=== PATIENT | female | born 1985 | race Caucasian/White ===

== ENCOUNTER 2020-05-01 09:30 | Day surgery (SDC) | payer BC ==
[2020-05-01] MEDS ORDERED: Fentanyl 100 MCG/2 ML VIAL ONE ×4 (09:56→13:45)
[2020-05-01] MEDS ORDERED: Ondansetron PF 4 MG/2 ML Vial ONE ×2 (09:56→14:08)
--- NOTE | 2020-05-01 11:00 | HP ---
HISTORY OF PRESENT ILLNESS: Ms. Perez is a 35-year-old woman, who presented to emergency department in [place] complaining of insidious onset periumbilical abdominal pain, which started three days ago, rated at 6/10. Pain intensified yesterday afternoon at work, at that time rated at 8/10, associated with some chills. Workup there revealed an inflamed appendix, for which the patient was transferred to [facility] in [place], [place]. She denies any fever at the moment. She denies any change in her bowel habits. PAST MEDICAL HISTORY: Pertinent for chronic depression. PAST SURGICAL HISTORY: Pertinent for left breast lumpectomy for benign lesion, right ankle surgery, and excision of benign cyst in her groin. SOCIAL HISTORY: She is employed as a speech pathologist. She admits to occasional intake of ethanol in moderate amounts. She denies any cigarette smoking or illicit drug abuse. FAMILY HISTORY: Notable for breast carcinoma in her mother, who eventually from suicide. She has paternal grandparents with essential hypertension. There is no family history of diabetes mellitus, heart disease, or any other gastrointestinal disorder. PREHOSPITALIZATION MEDICATIONS: Include Lexapro 10 mg p.o. daily. ALLERGIES: THE PATIENT DENIES ANY KNOWN DRUG ALLERGIES. REVIEW OF SYSTEMS: Ten-point review of systems essentially unremarkable except as stated in past medical history and chief complaint. PHYSICAL EXAMINATION: GENERAL: This reveals a 35-year-old normally developed woman, who is otherwise coherent and interactive and appears stated age. The patient is alert and oriented x3, appears to be in no significant acute distress at the time of my evaluation. She now rates her pain at 5/10. VITAL SIGNS: Include blood pressure 124/72, pulse 90, respiratory rate is 18, temperature 98.1 degrees Fahrenheit, and oxygen saturation is 100% on room air. HEENT: Reveals normocephalic and atraumatic. Pupils are equal, round, and reactive to light and accommodation. HEART: Reveals regular rate and rhythm. No murmurs or gallops auscultated. LUNGS: Clear to auscultation bilaterally. Her breathing is regular and nonlabored. ABDOMEN: Soft with right lower quadrant tenderness at McBurney's. She has a positive Rovsing sign. Liver and spleen otherwise nonpalpable below costal margin. NEUROLOGIC: Reveals no focal deficits present. PERTINENT LABORATORY FINDINGS: Today include a CBC with 7300 white blood cell, hemoglobin and hematocrit 12.8 and 40.7 respectively. Platelet count is 151,000. Metabolic profile; sodium 138, potassium 3.8, chloride is 104, bicarb is 23, BUN 8, creatinine is 0.77, glucose is 112, lactic acid is 0.7. I have personally reviewed the CT scan of the abdomen and pelvis, which is remarkable for dilated appendix with periappendiceal fat stranding. No pneumoperitoneum or significant free fluid to suggest perforation. IMPRESSION: Acute appendicitis. RECOMMENDATIONS: Laparoscopic appendectomy. Above findings and plan have been discussed with the patient, who indicates understanding of information given. I have advised her of the risks and benefits of the proposed surgery to include, but not limited to bleeding, infection, injury to bowel or surrounding structures. I also informed the patient that given her pain is a little better today compared to yesterday, it is possible that she may have ruptured her appendix considering the pain has been there now for three days. If the appendix is ruptured, this may require additional hospitalization for IV antibiotics. Otherwise, anticipate discharging the patient today postoperatively. The patient indicates understanding of information given. I have answered all her questions. The patient is going to consent for this admission and surgical intervention. Job ID: [id number]
[2020-05-01] MEDS ORDERED: Lidocaine 1% w/Epinephrine 1:100K 20 ML VIAL ONE (12:00)
[2020-05-01] MEDS ORDERED: Bupivacaine 0.25% HCL 30 ML VIAL ONE (12:00)
[2020-05-01] MEDS ORDERED: HYDROmorphone 2 MG/ML VIAL SLOW IVP PRN (12:35)
[2020-05-01] MEDS ORDERED: Promethazine HCl 25 MG/ML VIAL SLOW IVP PRN (12:35)
[2020-05-01] MEDS ORDERED: Promethazine HCl 25 MG/ML VIAL IM PRN (12:35)
[2020-05-01] MEDS ORDERED: Meperidine HCl/PF 25 MG/ML VIAL SLOW IVP PRN (12:35)
[2020-05-01] MEDS ORDERED: Ondansetron HCl/PF 4 MG/2 ML Vial IVP PRN (12:35)
[2020-05-01] MEDS ORDERED: Meperidine HCl/PF 25 MG/ML VIAL ONE (13:26)
[2020-05-01] MEDS ORDERED: Promethazine HCl 25 MG/ML VIAL ONE (13:48)
[2020-05-01] MEDS ORDERED: PROPOFOL 200 MG/20 ML VIAL ONE (14:08)
[2020-05-01] MEDS ORDERED: Ketorolac Tromethamine 30 MG/ML VIAL ONE (14:08)
[2020-05-01] MEDS ORDERED: Succinylcholine Chloride 20 MG/ML 10 ml SYRINGE FS ONE (14:08)
[2020-05-01] MEDS ORDERED: Glycopyrrolate 0.2 MG/ML 5 ML SYRINGE ONE (14:08)
[2020-05-01] MEDS ORDERED: Lidocaine 1% PF 5 ML VIAL ONE (14:08)
[2020-05-01] MEDS ORDERED: Rocuronium Bromide 10 MG/ML (10ML VIAL) ONE (14:08)
[2020-05-01] MEDS ORDERED: Dexamethasone 20 MG/5 ML VIAL ONE (14:08)
--- NOTE | 2020-05-01 15:37 | OP ---
DATE OF PROCEDURE: 05/01/2020 PREOPERATIVE DIAGNOSIS: Acute appendicitis. POSTOPERATIVE DIAGNOSIS: Acute appendicitis. PROCEDURE PERFORMED: Laparoscopic appendectomy. ANESTHESIA: General endotracheal. ESTIMATED BLOOD LOSS: 5 mL. FLUIDS GIVEN: 1100 mL of crystalloids. COUNTS: Sponge and instrument counts were verified as correct x2. COMPLICATIONS: None apparent at the time of operation. INDICATIONS FOR OPERATION: A 35-year-old woman, presented with 3-day history of periumbilical abdominal pain right lower quadrant. Clinical and radiographic examination were consistent with acute appendicitis, for which the patient was brought to the operating room for appendectomy. Findings are consistent with dilated retrocecal appendix. No evidence of perforation. DESCRIPTION OF PROCEDURE: Informed consent was obtained from the patient, who was brought to the operating room and placed in supine position. Following general anesthesia, abdomen was sterilely prepped and draped in usual fashion. The skin below the umbilicus was infiltrated with 0.25% Marcaine with epinephrine. A small curvilinear infraumbilical incision was made using 11 scalpel. Umbilical stalk was grasped with Solo and elevated. Veress needle was inserted through the incision and placed in the peritoneal cavity through which the abdomen was insufflated with 3 L of CO2 gas. Intraabdominal pressure noted at 1 mmHg. Following abdominal insufflation, Veress needle was removed and a 5-mm trocar introduced using a Visiport under laparoscopy. Laparoscopy confirmed proper placement of the port, no injuries to underlying structures. Additional laparoscopy reveals the right lower quadrant partially obscured by omental adhesions. Under direct laparoscopy, two 5-mm suprapubic and left lower quadrant ports were placed after the overlying skin were infiltrated with 0.25% Marcaine with epinephrine and appropriate incision was made. The patient was placed in a Trendelenburg position, rotated to her left. I introduced a Prestige grasper through the left lower quadrant port site, using this to bluntly take down omental adhesions to expose a retrocecal appendix. Endo Elias forceps was introduced through the suprapubic port site grasping the appendix, which was elevated. Using a LigaSure device, the mesoappendix was sterilely divided down to the base with good hemostasis. Appendix itself was then divided at the appendicocecal junction between Endoloop. The specimen was delivered of the abdominal cavity using an Endo Catch. The distal ileum was run from the ileocecal junction down to proximal 2 feet, finding no Meckel's diverticulum. Finding no other pathology, laparoscopy was terminated. Abdomen was desufflated. All ports and instruments were removed and accounted for. Skin incision was closed using 4-0 Monocryl suture in subcuticular fashion. Dermabond was applied over incisional closure. The patient tolerated the operation without any apparent complication and was returned to recovery room in satisfactory condition. Job ID: [id number]
== END 2020-05-01 16:15 | disposition home or self-care (01) ==
LOC: ERS 09:30
PROVIDERS: ATTEND Surgery
PROC: 0DTJ4ZZ Resection of Appendix, Percutaneous Endoscopic Approach (ICD-10-PCS; principal; 2020-05-01)
DX: K35.80 Unspecified acute appendicitis (principal); F32.9 Major depressive disorder, single episode, unspecified; Z79.899 Other long term (current) drug therapy
CPT/HCPCS: 88304; J1100; J1885; J2001; J2175; J2405; J2550; J2704; J3010; S0020; U0002